=== PATIENT | male | born 1960 | race Caucasian/White ===

== ENCOUNTER 2018-02-14 15:17 | Outpatient (CLI) | payer MEDICARE, SELFPAY ==
[2018-02-14 16:17] LABS: ALT 45 U/L (12-78); AST 26 U/L (15-37); Albumin 3.9 g/dL (3.4-5.0); Alkaline Phosphatase 98 U/L (46-116); Anion Gap 10.3 mmol/L (3-11); BUN 17 mg/dL (7-18); Bilirubin, Total 0.2 mg/dL (0.2-1.0); CO2 26.7 mmol/L (21.0-32.0); Calcium 9.3 mg/dL (8.5-10.1); Chloride 103 mmol/L (98-107); Glucose 115 mg/dL (70-100); Magnesium 1.9 mg/dL (1.8-2.4); Potassium 3.9 mmol/L (3.5-5.1); Sodium 140 mmol/L (136-145); TSH (W/Ref FT4) 1.35 uIU/mL (0.358-3.74); Total Protein 7.3 g/dL (6.4-8.2)
[2018-02-14 16:22] LABS: Troponin I < 0.02 ng/mL (0.00-0.06)
== END 2018-02-14 15:37 ==
PROVIDERS: PCP Internal Medicine; Visit Provider Nurse Practitioner Family
DX: R00.2 Palpitations (principal)
CPT/HCPCS: 36415; 80053; 83735; 84443; 84484

== ENCOUNTER 2018-08-22 02:52 | Outpatient (CLI) | payer MEDICARE, SELFPAY ==
--- NOTE | 2018-08-22 | PFT_ITS ---
PULMONARY FUNCTION TEST REPORT Patient - Poncho Mcwilliams 60 DATE OF SERVICE August 22, 2018 REQUESTING PROVIDER Lucas Kirk M.D. INTERPRETATION OF STUDY Spirometry shows mild obstructive airways disease with no significant bronchodilator response. LUNG VOLUMES - Lung volumes show no evidence of restriction. DIFFUSION CAPACITY- Mildly reduced even when corrected to alveolar volume. AIRWAY RESISTANCE Normal. IMPRESSION Mild obstructive airways disease with no significant bronchodilator response. This is associated with mild diffusion defect. Clinical correlation recommended. When this study was compared to previous one from 04/23/15, the patient has a total of 70 cc decline in FVC and 190 cc improvement in FEV1. Clinical correlation recommended. Bhavani Lopez M.D. Monica DD 08/23/2018 DT - 08/23/2018
--- NOTE | 2018-08-22 | PFT_ITS ---
PULMONARY FUNCTION TEST REPORT Patient - Poncho Mcwilliams 60 DATE OF SERVICE August 22, 2018 REQUESTING PROVIDER Lucas Kirk M.D. INTERPRETATION OF STUDY Spirometry shows mild obstructive airways disease with no significant bronchodilator response. LUNG VOLUMES - Lung volumes show no evidence of restriction. DIFFUSION CAPACITY- Mildly reduced even when corrected to alveolar volume. AIRWAY RESISTANCE - Normal. IMPRESSION Mild obstructive airways disease with no significant bronchodilator response. This is associated with mild diffusion defect. Clinical correlation recommended. When this study was compared to previous one from 04/22/15, the patient has an overall 90 cc decline in FVC. FEV1 has improved by 190 cc. Clinical correlation recommended. Bhavani Lopez M.D. THALIA/ra Cook 08/30/2018
[2018-08-22] MEDS: Albuterol HFA 18 GM 200 PUFF INH IH (16:52)
[2018-08-22] MEDS: Inhaler, Assist Device 1 EACH MC (16:52)
== END 2018-08-22 03:12 ==
PROVIDERS: PCP Internal Medicine; Visit Provider Internal Medicine
DX: J44.9 Chronic obstructive pulmonary disease, unspecified (principal); R06.09 Other forms of dyspnea; Z87.891 Personal history of nicotine dependence
CPT/HCPCS: 94060; 94150; 94726; 94729

== ENCOUNTER 2018-08-29 01:05 | Outpatient (CLI) | payer MEDICARE, SELFPAY ==
--- NOTE | 2018-08-29 13:00 | DI.CTLCSR_ITS ---
SYMPTOMS/DIAGNOSIS: H/O TOBACCO USE, Z87.[address] FOR LUNG CANCER SCREENING: Low dose screening protocol was used. Comparison was made with PE chest CT dated April,. Paraseptal emphysema is seen, greatest at the upper lobes, as well as posteriorly in the lower lobes. There is no evidence of pleural or pericardial effusion, infiltrates or adenopathy. No pulmonary nodules are identified. Degenerative changes are seen in the spine. No suspicious bony lesions are identified. The heart size is normal. Coronary artery calcifications are seen. There is no evidence of aortic aneurysm or significant aortic calcification. The visualized portions of the upper abdominal organs are unremarkable. IMPRESSION: No evidence of suspicious nodules. Paraseptal emphysema is present. Lung-RAD Category: 1- Negative Lung- RAD Management of Findings: Continue annual LDCT screening in 12 months
== END 2018-08-29 01:25 ==
PROVIDERS: PCP Internal Medicine; Visit Provider Internal Medicine
DX: Z12.2 Encounter for screening for malignant neoplasm of respiratory organs (principal); J43.8 Other emphysema; Z87.891 Personal history of nicotine dependence
CPT/HCPCS: G0297

== ENCOUNTER 2019-05-15 12:24 | Outpatient (REF) | payer BC, MEDICARE, SELFPAY ==
[2019-05-15 23:26] LABS: Anion Gap 11.7 mmol/L (3-11); BUN 15 mg/dL (7-18); CO2 25.3 mmol/L (21.0-32.0); CREATININE 1.04 mg/dL (0.70-1.30); Calcium 9.1 mg/dL (8.5-10.1); Calculated LDL 56 mg/dL (<100); Chloride 104 mmol/L (98-107); Cholesterol 107 mg/dL (<200); Glucose 88 mg/dL (74-106); HDL Cholesterol 32 mg/dL (40-60); Potassium 4.4 mmol/L (3.5-5.1); Sodium 141 mmol/L (136-145); TSH 1.96 uIU/mL (0.36-3.74); Triglyceride 95 mg/dL (<150); Vitamin B12 477 pg/mL (193-986)
[2019-05-17 16:07] LABS: Albumin 61.1 % (55.8-66.1); Total Protein 6.7 g/dL (6.3-8.2)
== END 2019-05-15 12:44 ==
LOC: NCHCN 12:24
PROVIDERS: PCP Internal Medicine; Visit Provider Internal Medicine
DX: I25.10 Atherosclerotic heart disease of native coronary artery without angina pectoris (principal); F32.9 Major depressive disorder, single episode, unspecified; E87.6 Hypokalemia; G60.9 Hereditary and idiopathic neuropathy, unspecified; J44.9 Chronic obstructive pulmonary disease, unspecified
CPT/HCPCS: 80048; 80061; 82607; 83036; 84165; 84443

== ENCOUNTER 2019-09-11 01:10 | Outpatient (CLI) | payer BC, SELFPAY ==
--- NOTE | 2019-09-11 12:35 | DI.CTLCSR_ITS ---
EXAM: CT CHEST LUNG CANCER SCREEN CLINICAL HISTORY: The patient reportedly has a History of Smoking 30 pack years and presently smokes or has quit the past 15 years. TECHNIQUE: Imaging Protocol: Axial computed tomography images with coronal and sagittal reformatted images were created and reviewed COMPARISON: CT CT CHEST LUNG CANCER SCREEN from 08/29/2018 FINDINGS: Lung Nodules: There is a 7 millimeter in diameter spiculated appearing nodule in the posterior right upper lobe. A 4 x 7 millimeter nodule is seen in the anterior right upper lobe. A 3 x 5 millimeter nodule is seen in the medial right upper lobe. A 9 x 6 millimeter nodule is noted in the left upper lobe. There is a peripheral nodule measuring 4 x 6 millimeters in the left upper lobe. A 4 millimet er nodule seen in the left lower lobe. Underlying emphysematous changes are again noted. Tracheobronchial tree: Patent where visualized. Mediastinum and Jaylyn: No dominant adenopathy or fluid collection. Pulmonary parenchyma: No consolidation or dominant measurable mass. No architectural distortion. Pleura: No effusion or pneumothorax. Heart: The heart is not dilated. Coronary artery calcifications are seen. Aorta: Thoracic aorta non-dilated. Upper abdomen: Unremarkable. Bones: Degenerative disc changes. Soft Tissues: Unremarkable. IMPRESSION: Multiple new bilateral pulmonary nodules. The findings could represent metastatic disease. Lung RADS Category 4B - Suspicious: Findings for which additional diagnostic testing and/or tissue sa mpling is recommended Lung-RADS 1.0 CATEGORIES: Category 0 - Prior chest CT exam(s) being located for comparison. Category 1 - Annual screening in 12 months. No nodules or definitely benign nodules. Category 2 - Annual screening in 12 months. Benign appearance. Nodules with low likelihood of becomin g active cancer. Category 3 - 6-month follow-up. Probably benign. Short-term follow-up suggested. Nodules with low lik elihood of becoming active cancer. Category 4A - 3-month follow-up and CT/PET if >8 mm in size. Suspicious finding. Findings which requi re additional testing. Category 4B - Findings which require additional testing and tissue sampling. Suspicious finding. C Added to Any of the Above - History of prior lung cancer. S Added to Any of the Above - Significant unexpected other finding. RADIATION DOSE DELIVERED: 81.36mGy.cm Total DLP DATA REPOSITORY: All CT scans at this facility are submitted to the National Radiology Data Registry (NRDR) Dose Index Registry (DIR) with the [employer] (ACR). RADIATION OPTIMIZATION: All CT scans at this facility use at least one of these dose optimization te chniques: automated exposure control; mA and/or kV adjustment per patient size (includes targeted exa ms where dose is matched to clinical indication); or iterative reconstruction.
== END 2019-09-11 01:30 ==
PROVIDERS: PCP Internal Medicine; Visit Provider Internal Medicine
DX: Z12.2 Encounter for screening for malignant neoplasm of respiratory organs (principal); F17.200 Nicotine dependence, unspecified, uncomplicated; R91.8 Other nonspecific abnormal finding of lung field; J43.8 Other emphysema
CPT/HCPCS: G0297

== ENCOUNTER 2019-10-02 00:09 | Outpatient (CLI) | payer BC, SELFPAY ==
--- NOTE | 2019-10-02 06:30 | DI.US_ITS ---
EXAM: US CAROTID CLINICAL HISTORY: blurry vision,CAD,H53.8,I25.10. TECHNIQUE: Ultrasound carotids performed using grayscale, color-flow, and spectral Doppler imaging. COMPARISON: CT CT CHEST LUNG CANCER SCREEN from 09/11/2019 FINDINGS: RIGHT CAROTID ARTERY: Plaque: Mild plaque in the common carotid bulb . Velocity elevation: None. LEFT CAROTID ARTERY: Plaque: Mild plaque in the common carotid bulb. Velocity elevation: None. VERTEBRAL ARTERIES: Antegrade flow. An 8 millimeter cyst is seen in the right lobe of the thyroid. Velocity measurements: R Bulb: 61.7cm/s PS / 17.4cm/s ED R CCA: 79.7cm/s PS / 18cm/s ED R ECA: 104.1cm/s PS / 14.8cm/s ED R ICA Prox: 77.1cm/s PS /19.3cm/s ED R ICA Mid: 83.6cm/s PS / 23.8cm/s ED R ICA Distal: 82.9cm/s PS /23.8cm/s ED R Vert: 46.3cm/s PS / 6.8cm/s ED R SVR: 1.05 R DVR: 1.32 L Bulb: 36.8cm/s PS /9.5cm/s ED L CCA: 92.5cm/s PS / 13.9cm/s ED L ECA: 84.7cm/s PS /12.1cm/s ED L ICA Prox:63.1cm/s PS / 18.9cm/s ED L ICA Mid: 83.1cm/sPS / 23.7cm/s ED L ICA Distal: 86.8cm/s PS / 28.4cm/s ED L Vert: 56.3cm/s PS / 15.2cm/s ED L SVR: 0.94 L DVR: 2.04 IMPRESSION: No evidence for hemodynamically significant carotid stenosis. Criteria for Carotid Stenosis: Normal: ICA PSV <125 cm/s no plaque or intimal thickening is visible. <50% stenosis: ICA PSV <125 cm/s and plaque or intimal thickening is visible. 50-69% stenosis: ICA PSV is 125-250 cm/s and plaque is visible. >70% stenosis to near occlusion: ICA PSV >250 cm/s with visible plaque and luminal narrowing. DATA REPOSITORY:
--- NOTE | 2019-10-02 07:36 | DI.US_ITS ---
APPROVED REPORT EXAM: Comprehensive 2D, Doppler, and color-flow Echocardiogram Patient Location: Out-Patient Clinical Material Handler: Leanna Vargas RDCS (AE) Indications: CAD, Blurry vision Other Information Study Quality: Adequate Conclusion Left Ventricle : The left ventricle is normal size. The left ventricular systolic function is normal. The left ventricular ejection fraction is within the normal range. There is normal left ventricular wall thickness. There is normal LV segmental wall motion. The left ventricular diastolic function is normal. LVEF is 50%. Right Ventricle : The right ventricle is normal size. The right ventricular systolic function is norm al. The RVSP is 19.1mmHg. Atria : The left atrium size is normal. The right atrium size is normal. Valves: There are no hemodynamically significant valvular lesions. Great Vessels : IVC is normal in size and collapses >50% with inspiration. Compared to echocardiogram from 04/22/2015: There is no significant change. Wall motion Left Ventricle The left ventricle is normal size. The left ventricular systolic function is normal. The left ventric ular ejection fraction is within the normal range. There is normal left ventricular wall thickness. T here is normal LV segmental wall motion. The left ventricular diastolic function is normal. There is no ventricular septal defect visualized. LVEF is 50%. Right Ventricle The right ventricle is normal size. The right ventricular systolic function is normal. The RVSP is 19 .1mmHg. Atria The left atrium size is normal. The right atrium size is normal. The interatrial septum is intact wit h no evidence for an atrial septal defect. Aortic Valve Aortic valve is trileaflet. There is no aortic valvular stenosis. Mild aortic regurgitation. Mitral Valve The mitral valve is normal in structure. No evidence of mitral valve stenosis. Trace to mild mitral r egurgitation. Tricuspid Valve The tricuspid valve is normal in structure. There is no tricuspid valve stenosis. Trace tricuspid reg urgitation. Pulmonic Valve Pulmonic valve is not well visualized. There is no pulmonic valvular stenosis. There is no pulmonic v alvular regurgitation. Great Vessels The aortic root is normal in size. Ascending aorta is not well visualized. Aortic arch is normal in c aliber. IVC is normal in size and collapses >50% with inspiration. Pericardium There is no pericardial effusion. 2D Dimensions IVSD d PLAX 0.98 cm M: 0.6-1.2 LV Vol A2C d MOD 108.7 mL LVPW d PLAX 0.96 cm M: 0.6 - 1.2 LV Vol A4C d MOD 128.6 mL LVID d PLAX 5.16 cm M: 4.2 - 5.8 LA vol/ BSA A2C s A-L 21.2 mL/m2 LVDs 3.90 cm M: 2.5 - 4.0 LA vol/ BSA A4C s A-L 18.0 mL/m2 Ao Root d 3.55 cm M: 3.1 - 3.7 LA Vol/ BSA Biplane s A-L 20.7 mL/m2 RA Area A4C 12.03 cm2 LA Area A4C s MOD 14.10 cm2 RA Vol/ BSA A4C s A-L 15.0 mL/m2 LA Area A2C s MOD 16.26 cm2 LV EF Teichholz 47.7 % LV EF A4C MOD 49.4 % LVEF (De Souza's) 48.68 % M: 52 - 72 LV EF A2C MOD 50.7 % LV Volume 88.63 mL M: 62 - 150 LV EF Biplane MOD 48.7 % LV Volume Index 43.66 mL/m2 M: 34 - 74 SV 57.88 mL LV Vol Biplane MOD 118.9 mL SV Index 28.41 mL/m2 FS 24.10 % M-Mode TAPSE 2.77 cm (M/F) >1.7 LV Diastology MV E' medial 0.142 (>0.07 m/s) E/A Ratio 1.0 LV E/e MED 4.75 (<14) MV E Vmax 0.67 (0.4-1.3 m/s) MV E' lateral 0.192 (>0.1 m/s) MV A Vmax 0.70 (0.4-1.3 m/s) LV E/e LAT 3.50 (<14) MV E/A Ratio 0.93 MV E/E' medial 4.76 MV E/E' lateral 3.51 Aortic Valve LVOT Area 4.10 cm2 AoV Area Vmax 3.10 cm2 LVOT Vmax 0.94 m/s AoV Area/ BSA (Vmax) 1.52 cm2/m2 LVOT Mean Joe. 0.57 m/s PUNEET Mean Joe. 2.87 cm2 LVOT Peak Grad 3.5 mmHg PUNEET Mean Joe. Index 1.41 cm2/m2 LVOT Mean Grad 1.6 mmHg AR DT 2312 msec LVOT VTI 0.208 m AR PHT 670 msec LVOT Diam s 2.25 cm AoV Vmax 1.24 m/s Velocity Ratio 0.75 AoV Mean Joe. 0.82 m/s AoV Peak Grad 6.1 mmHg LVOT SV 85.06 mL AoV Mean Grad 3.1 mmHg AoV VTI 0.285 m AoV Area VTI 2.98 cm2 AoV Area/ BSA (VTI) 1.46 cm/m2 Mitral Valve MV DT 226 (160-240 msec) MV PHT 65 msec MV Area PHT 3.36 cm2 Pulmonary Valve PV Vmax 0.83 (0.5-1.5 m/s) RVOT Peak Gr. 1.62 mmHg PV Peak Grad 2.8 mmHg RVOT Mean Gr. 0.70 mmHg PV Mean Grad 1.6 mmHg RVOT VTI 0.122 m PV VTI 0.178 m RVOT Vmax 0.64 m/s Tricuspid Valve TR Peak Grad 16.0 mmHg TR Vmax 2.00 m/s RA Pressure 3.00 mmHg RVSP (TR) 19.1 mmHg
== END 2019-10-02 00:29 ==
PROVIDERS: PCP Internal Medicine; Visit Provider Internal Medicine Cardiovascular Disease
DX: I25.10 Atherosclerotic heart disease of native coronary artery without angina pectoris (principal); H53.8 Other visual disturbances; E04.1 Nontoxic single thyroid nodule
CPT/HCPCS: 93306; 93880

== ENCOUNTER 2019-11-10 07:32 | Outpatient (CLI) | payer BC, SELFPAY ==
[2019-11-13 23:45] LABS: COVID-19 RT-PCR UVMMC Result Negative (Negative)
== END 2019-11-10 07:52 ==
PROVIDERS: PCP Internal Medicine; Visit Provider Surgery
DX: Z01.818 Encounter for other preprocedural examination (principal)
CPT/HCPCS: U0003

== ENCOUNTER 2019-11-14 07:51 | Day surgery (SDC) | payer MEDICARE, BC, SELFPAY ==
[2019-11-14 07:58] VITALS: BP 111/63; PULSE 75; RESP 16; TEMP 36.2; O2SAT 98
[2019-11-14] MEDS: Lactated Ringers 1,000 ML 80 ML IV (08:30)
--- NOTE | 2019-11-14 09:16 | W.PM.DSUDISC ---
Discharge Plan Disposition Patient Disposition: HOME Condition: Good Discharge Details Reason For Visit: EGD, Colonoscopy Attending Provider: Radha Bennett Primary Care Provider: Lucas Kirk Home Meds and New Rx's Prescriptions: Continued Incruse Ellipta 62.5 mcg/actuation blister with device 1 inh IH DAILY RF: 0 metoprolol succinate 50 mg tablet extended release 24 hr 50 mg PO DAILY RF: 0 aspirin [Aspirin Low-Strength] 81 MG tablet,chewable 81 mg PO DAILY RF: 0 atorvastatin 40 MG tablet 40 mg PO DAILY RF: 0 carvedilol 6.25 MG tablet 6.25 mg PO BID RF: 0 lisinopril 5 MG tablet 5 mg PO DAILY RF: 0 nitroglycerin [Nitrostat] 0.4 MG tablet, sublingual 0.4 mg Sublingual Q5 MIN PRN X3 PRNQty: 25 RF: 0 Discharge Instructions Additional Instructions: Findings: Your EGD was normal. Routine biopsies were taken from the stomach. Two small polyps were removed from the colon. My office will contact you with biopsy results. Follow up: If the colon polyps are adenomatous, you will need a colonoscopy in 5 years. Please call if you develop: fevers >101.5 Nausea or Vomiting Abdominal pain that is not transient Bleeding DAY SURGERY UNIT POST EGD/COLONOSCOPY INSTRUCTIONS 1. Because there will be medication in your system for the next 24 hours, you may feel a little sleepy. Your coordination will be affected. Therefore: a. Do not drive or operate dangerous equipment for 24 hours. b. Do not drink alcohol beverages for 24 hours (not even beer). c. Plan to go home and rest for the day. 2. Generally there are no restrictions on your activity after a day or so has gone by, but you may feel a bit fatigued for a few days. 3 After you arrive home you may have a light meal and return to a normal diet as you can tolerate it without feeling sick to your stomach. 4. After surgery, you may feel pain or discomfort. This should be only transient, but if it persists please contact your doctor. 5. If there are any questions regarding the findings of your procedure, please feel free to contact your doctor. 6. If you are unable to contact your doctor with a problem, contact the hospital at [phone]. 7. Continue all your regular medications unless directed otherwise. I understand the above instructions and have no questions. Signature of Patient or Responsible Adult Escort Date/Time Name of Responsible Adult Escort Signature of Nurse Date/Time Activity:: Activity as Tolerated Diet:: As Tolerated Discharge Orders Discharge Orders: Discharge Order (Routine); Ordered 11/14/19 Ordered By: Merna Bates DS: Diagnosis Discharge Diagnosis (1) Colon polyps: Status: Acute
--- NOTE | 2019-11-14 09:17 | W.PM.OP ---
Date of service: 11/14/19 Time of Service: 10:45 Operative Note Operative Note DATE OF PROCEDURE: 11/14/19 PRE-OP DIAGNOSIS: Abnormal PET scan POST-OP DIAGNOSIS: other (Normal EGD, colon polyps) PROCEDURE: EGD with biopsy Colonoscopy with snare polypectomy SURGEON: Merna Bates ANESTHESIA: MAC Patient was transported to: same day Indications: This patient had a chest CT which showed pulmonary nodules. Follow up PET scan showed increased uptake in the stomach and right colon, direct visualization needed. No prior EGD. Colonoscopy in 2014 showed a rectal hyperplastic polyp. Procedure Description: The patient was placed in the left lateral position and propofol titrated to sedation. The endoscope was advanced into the esophagus under direct visualization. The scope was passed through the stomach and into the duodenum. There was no duodenitis or ulceration noted. The stomach itself was normal including on retroflexed view of the fundus and lesser curvature. Routine biopsies were taken from the gastric antrum. The GE junction was inspected and showed no significant stricture, inflammation, masses or Barretts. The scope was slowly withdrawn with no other esophageal lesions found. Digital rectal examination revealed no abnormalities. The scope was advanced to the cecum without difficulty. The ileocecal valve and appendiceal orifice were clearly identified. The prep was good. The scope was slowly withdrawn over the course of greater than 6 minutes with no abnormalities seen in the ascending, transverse, descending colon. At 20 cm in the distal sigmoid, a less than 1cm polyp was removed with the snare and sent to pathology. A tiny rectal polyp was removed with the snare. The remainder of the rectum was normal including on retroflexed view. The patient tolerated the procedure well and was stable to recovery. If the polyps are adenomatous, he will need a colonoscopy in 5 years.
--- NOTE | 2019-11-14 10:00 | STOM_PTH ---
PATIENT: Poncho Mcwilliams LOC: [facility] U#:[id number] AGE/SX: 59/M ROOM: RE11/14/[address]: Radha Bennett : 1960 BED: DIS: 11/14/2019 SPEC #: [id number] RECD: 11/14/19 12:43 STATUS: [facility] REQ #: [id number] DIRK: 11/14/19 10:[address]: Radha Bennett DEPT: Surgical Specimen RECD BY: Kaylie Gimenez ENTERED: 11/14/19 12:47 SP TYPE: STOMACH OTHR DR: Lucas Kirk Tissues: 1 - STOMACH BIOPSY 2 - BIOPSY BOWEL 3 - BIOPSY BOWEL Procedures: GROSS AND MICRO LEVEL 4 Comments: [id number]
[2019-11-14 11:14] VITALS: BP 101/51; PULSE 56; RESP 17; TEMP 36.2; O2SAT 99
== END 2019-11-14 11:34 | disposition home or self-care (01) ==
PROVIDERS: Surgery; PCP Internal Medicine; Visit Provider Surgery
DX: R93.3 Abnormal findings on diagnostic imaging of other parts of digestive tract (principal); Z80.7 Family history of other malignant neoplasms of lymphoid, hematopoietic and related tissues; R91.1 Solitary pulmonary nodule; K63.5 Polyp of colon
CPT/HCPCS: 45385; 43239; 88305; J2001; J2704

== ENCOUNTER 2019-12-03 01:05 | Outpatient (CLI) | payer BC, SELFPAY ==
--- NOTE | 2019-12-03 08:45 | DI.CT_ITS ---
EXAM: CT CHEST WO CLINICAL HISTORY: F/U ABNL FINDINGS,R93.89,F/U PULMONARY NODULES TECHNIQUE: Imaging Protocol: Axial computed tomography images with coronal and sagittal reformatted images were created and reviewed CONTRAST MATERIAL: Intravenous: Omnipaque 350 Contrast volume:structured data in ml. COMPARISON: CT CT CHEST LUNG CANCER SCREEN from 09/11/2019 FINDINGS: Tracheobronchial tree: Patent where visualized. Mediastinum and Jaylyn: No dominant adenopathy or fluid collection. Pulmonary parenchyma: There has been interval decrease in size of the left upper lobe nodule now ken uring 4 millimeters in diameter. The nodule at the right upper lobe medially now measures 3 millimet ers. The additional nodules previously seen are no longer visible. Underlying emphysematous changes are present. Pleura: No effusion or pneumothorax. Heart: The heart is not dilated. coronary artery calcifications are seen. Aorta: Thoracic aorta non-dilated. Upper abdomen: Unremarkable. Lymph nodes: Within normal limits. Bones: Degenerative disc changes.. Soft tissues: Unremarkable. IMPRESSION: Interval decrease in size of pulmonary nodules. Some of the previously noted nodules are no longer v isible. No new abnormalities are seen. RADIATION DOSE DELIVERED: 402.88mGy.cm Total DLP DATA REPOSITORY: All CT scans at this facility are submitted to the National Radiology Data Registry (NRDR) Dose Index Registry (DIR) with the [employer] (ACR). RADIATION OPTIMIZATION: All CT scans at this facility use at least one of these dose optimization te chniques: automated exposure control; mA and/or kV adjustment per patient size (includes targeted exa ms where dose is matched to clinical indication); or iterative reconstruction.
== END 2019-12-03 01:25 ==
PROVIDERS: PCP Internal Medicine; Visit Provider Internal Medicine
DX: R91.8 Other nonspecific abnormal finding of lung field (principal)
CPT/HCPCS: 71250

== ENCOUNTER 2020-06-10 17:20 | Outpatient (REF) | payer BC, SELFPAY ==
[2020-06-10 19:49] LABS: Anion Gap 6.5 mmol/L (3-11); BUN 20 mg/dL (7-18); CO2 27.5 mmol/L (21.0-32.0); CREATININE 1.1 mg/dL (0.70-1.30); Calcium 9.1 mg/dL (8.5-10.1); Chloride 106 mmol/L (98-107); Glucose 92 mg/dL (74-106); Potassium 4.2 mmol/L (3.5-5.1); Sodium 140 mmol/L (136-145)
[2020-06-10 19:59] LABS: Hemoglobin A1C 6.3 % (<5.7)
== END 2020-06-10 17:21 | disposition home or self-care (01) ==
LOC: NCHCN 17:20
PROVIDERS: PCP Internal Medicine; Visit Provider Internal Medicine
DX: R73.03 Prediabetes (principal); I25.10 Atherosclerotic heart disease of native coronary artery without angina pectoris
CPT/HCPCS: 80048; 83036

== ENCOUNTER 2021-06-23 14:56 | Outpatient (REF) | payer BC, SELFPAY ==
[2021-06-23 15:28] LABS: HCT 44.1 % (40.0-50.0); HGB 14.3 g/dL (13.5-17.5); MCH 31.5 pg (27.0-33.0); MCHC 32.4 % (32.0-36.0); MCV 97.1 fL (80-95); MPV 10.9 fL (8.0-11.0); Platelet Count 206 10^3/uL (130-400); RBC 4.54 10^6/uL (4.36-5.78); RDW 13.2 % (11.8-14.1); RDW-SD 47.8 fL; WBC 5.91 10^3/uL (4.4-10.8)
[2021-06-23 15:34] LABS: Anion Gap 9.1 mmol/L (3-11); BUN 14 mg/dL (7-18); CO2 27.9 mmol/L (21.0-32.0); CREATININE 1.1 mg/dL (0.70-1.30); Calcium 9.2 mg/dL (8.5-10.1); Chloride 102 mmol/L (98-107); Glucose 123 mg/dL (74-106); Potassium 4.6 mmol/L (3.5-5.1); Sodium 139 mmol/L (136-145)
[2021-06-23 16:08] LABS: Hemoglobin A1C 6.1 % (<5.7)
== END 2021-06-23 14:57 | disposition home or self-care (01) ==
LOC: NCHCN 14:56
PROVIDERS: PCP Internal Medicine; Visit Provider Family Medicine
DX: Z00.00 Encounter for general adult medical examination without abnormal findings (principal); R73.03 Prediabetes; J44.9 Chronic obstructive pulmonary disease, unspecified
CPT/HCPCS: 80048; 85027; 83036

== ENCOUNTER 2022-05-14 00:32 | Outpatient (CLI) | payer BC, SELFPAY ==
--- NOTE | 2022-05-14 | DI.RAD_ITS ---
Exam(s) XR HAND LT COMPLETE EXAM: XR HAND LT COMPLETE CLINICAL HISTORY: OA HANDS,M19.90. TECHNIQUE: 2D digital imaging was performed of the left hand. Three views were obtained. AP, later al and oblique views were obtained. COMPARISON: No exams were available for comparison FINDINGS: BONES: No acute fracture is present. No bony destructive lesion is seen. JOINTS: No dislocation present. There are moderate hypertrophic changes seen at the 1st CMC joint wit h joint space narrowing. SOFT TISSUE: Normal. 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 DATA REPOSITORY: RADIATION DOSE DELIVERED:
== END 2022-05-14 00:52 ==
LOC: DI 00:33
PROVIDERS: PCP Internal Medicine; Visit Provider Family Medicine
DX: M79.642 Pain in left hand (principal); M18.12 Unilateral primary osteoarthritis of first carpometacarpal joint, left hand; M19.041 Primary osteoarthritis, right hand; M19.042 Primary osteoarthritis, left hand
CPT/HCPCS: 73130

== ENCOUNTER 2022-06-21 17:15 | Outpatient (REF) | payer BC, SELFPAY ==
[2022-06-21 21:26] LABS: Abs Immature Grans 0.01 10^3/uL (0.0-0.06); Absolute Basophil Count 0.03 10^3/uL (0.0-0.2); Absolute Eosinophil Count 0.11 10^3/uL (0.0-0.7); Absolute Lymphocyte Count 1.92 10^3/uL (1.2-3.4); Absolute Monocyte Count 0.77 10^3/uL (0.1-0.8); Absolute Neutrophil Count 4.36 10^3/uL (1.2-6.7); Basophils % 0.4; Eosinophils % 1.5; HCT 39.9 % (40.0-50.0); HGB 13.7 g/dL (13.5-17.5); Immature Grans % 0.1; Lymphocytes % 26.7; MCH 32.5 pg (27.0-33.0); MCHC 34.3 % (32.0-36.0); MCV 95 fL (80-95); MPV 10.7 fL (8.0-11.0); Monocytes % 10.7; Neutrophils % 60.6; Platelet Count 192 10^3/uL (130-400); RBC 4.21 10^6/uL (4.36-5.78); RDW-SD 45.2 fL
[2022-06-21 21:45] LABS: Hemoglobin A1C 5.9 % (<5.7)
[2022-06-21 21:51] LABS: ALT 32 U/L (16-63); AST 23 U/L (15-37); Alkaline Phosphatase 103 U/L (46-116); Anion Gap 9.4 mmol/L (3-11); BUN 21 mg/dL (7-18); Bilirubin, Total 0.3 mg/dL (0.2-1.0); CO2 25.6 mmol/L (21.0-32.0); CREATININE 1.2 mg/dL (0.70-1.30); Calcium 9.4 mg/dL (8.5-10.1); Chloride 105 mmol/L (98-107); Estimated GFR 68.38 (mL/min/1.73m2); Folate 10.1 ng/mL (8.6-20.0); Glucose 95 mg/dL (74-106); Potassium 4.1 mmol/L (3.5-5.1); Sodium 140 mmol/L (136-145); TSH (W/Ref FT4) 2.09 uIU/mL (0.36-3.74); Total Protein 7.1 g/dL (6.4-8.2); Vitamin B12 461 pg/mL (193-986)
== END 2022-06-21 17:16 | disposition home or self-care (01) ==
LOC: NCHCN 17:15
PROVIDERS: PCP Internal Medicine; Visit Provider Family Medicine
DX: Z00.00 Encounter for general adult medical examination without abnormal findings (principal); R73.03 Prediabetes; F17.210 Nicotine dependence, cigarettes, uncomplicated; M19.90 Unspecified osteoarthritis, unspecified site; G60.9 Hereditary and idiopathic neuropathy, unspecified
CPT/HCPCS: 80053; 82607; 82746; 83036; 84165; 84443; 85025

== ENCOUNTER 2022-11-29 09:30 | Outpatient (CLI) | payer BC, SELFPAY ==
--- NOTE | 2022-11-29 09:30 | RT.EKG_ITS ---
APPROVED REPORT Exam: Resting ECG Reason for Exam: CAD Patient Location: O HR:57 bpm ECG Measurements Heart Rate 57 AXIS AZ 179 P 80 QRSd 116 QRS 81 QT 437 T -18 QTc 426 Conclusion Sinus rhythm...normal P axis, V-rate 50- 99 Ventricular premature complex...V complex w/ short R-R interval Nonspecific intraventricular conduction delay...QRSd >115mS, not LBBB/RBBB Inferior infarct, age indeterminate...Q>35mS, T neg, II III aVF
== END 2022-11-29 09:31 | disposition home or self-care (01) ==
LOC: DI.CARD 09:32
PROVIDERS: PCP Family Medicine; Visit Provider Internal Medicine Cardiovascular Disease
DX: I25.10 Atherosclerotic heart disease of native coronary artery without angina pectoris (principal)
CPT/HCPCS: 93010

== ENCOUNTER 2023-07-25 13:25 | Outpatient (REF) | payer BC, SELFPAY ==
[2023-07-25 21:34] LABS: HCT 44.2 % (40.0-50.0); HGB 14.9 g/dL (13.5-17.5); MCH 32.7 pg (27.0-33.0); MCHC 33.7 % (32.0-36.0); MCV 97 fL (80-95); MPV 10.8 fL (8.0-11.0); Platelet Count 199 10^3/uL (130-400); RBC 4.56 10^6/uL (4.36-5.78); RDW 12.9 % (11.8-14.1); RDW-SD 46.5 fL; WBC 6.98 10^3/uL (4.4-10.8)
[2023-07-25 21:48] LABS: ALT 44 U/L (16-63); AST 27 U/L (15-37); Alkaline Phosphatase 108 U/L (46-116); Anion Gap 10.8 mmol/L (3-11); BUN 19 mg/dL (7-18); Bilirubin, Total 0.5 mg/dL (0.2-1.0); CO2 28.2 mmol/L (21.0-32.0); CREATININE 1.2 mg/dL (0.70-1.30); Calcium 9.5 mg/dL (8.5-10.1); Chloride 104 mmol/L (98-107); Estimated GFR 67.95 (mL/min/1.73m2); Glucose 112 mg/dL (74-106); Potassium 4.8 mmol/L (3.5-5.1); Sodium 143 mmol/L (136-145); Total Protein 6.9 g/dL (6.4-8.2)
== END 2023-07-25 13:26 | disposition home or self-care (01) ==
LOC: NCHCN 13:25
PROVIDERS: PCP Family Medicine; Visit Provider Family Medicine
DX: Z00.00 Encounter for general adult medical examination without abnormal findings (principal); I10 Essential (primary) hypertension
CPT/HCPCS: 80053; 85027

== ENCOUNTER 2024-08-02 14:02 | Outpatient (REF) | payer BC, SELFPAY ==
[2024-08-02 14:48] LABS: HCT 42.9 % (40.0-50.0); HGB 14.5 g/dL (13.5-17.5); MCH 32.7 pg (27.0-33.0); MCHC 33.8 % (32.0-36.0); MCV 97 fL (80-95); MPV 11.3 fL (8.0-11.0); Platelet Count 214 10^3/uL (130-400); RBC 4.44 10^6/uL (4.36-5.78); RDW 13.2 % (11.8-14.1); RDW-SD 47.5 fL; WBC 6.87 10^3/uL (4.4-10.8)
[2024-08-02 15:12] LABS: ALT 32 U/L (16-63); AST 26 U/L (15-37); Albumin 3.9 g/dL (3.4-5.0); Alkaline Phosphatase 111 U/L (46-116); Anion Gap 8.3 mmol/L (3-11); BUN 18 mg/dL (7-18); Bilirubin, Total 0.6 mg/dL (0.2-1.0); CO2 28.7 mmol/L (21.0-32.0); CREATININE 1.2 mg/dL (0.70-1.30); Calcium 9.8 mg/dL (8.5-10.1); Chloride 106 mmol/L (98-107); Estimated GFR 67.53 (mL/min/1.73m2); Glucose 95 mg/dL (74-106); LDL CHOLESTEROL 40 mg/dL (<100); Potassium 4.8 mmol/L (3.5-5.1); Sodium 143 mmol/L (136-145); Total Protein 6.7 g/dL (6.4-8.2)
== END 2024-08-02 14:03 | disposition home or self-care (01) ==
LOC: NCHCN 14:02
PROVIDERS: PCP Family Medicine; Visit Provider Family Medicine
DX: Z00.00 Encounter for general adult medical examination without abnormal findings (principal)
CPT/HCPCS: 80053; 83721; 85027

== ENCOUNTER 2025-01-25 08:51 | Outpatient (CLI) | payer BC, SELFPAY ==
--- NOTE | 2025-01-25 08:45 | RT.EKG_ITS ---
APPROVED REPORT Exam: Resting ECG Reason for Exam: follow up needed Patient Location: O HR:54 bpm ECG Measurements Heart Rate 54 AXIS OH 184 P 84 QRSd 118 QRS 87 QT 436 T -5 QTc 414 Conclusion Sinus rhythm...normal P axis, V-rate 50- 99 Nonspecific intraventricular conduction delay...QRSd >115mS, not LBBB/RBBB Inferior infarct, old...Q >35mS, II III aVF
== END 2025-01-25 08:52 | disposition home or self-care (01) ==
LOC: DI.CARD 08:52
PROVIDERS: PCP Family Medicine; Visit Provider Internal Medicine Cardiovascular Disease
DX: I25.10 Atherosclerotic heart disease of native coronary artery without angina pectoris (principal)
CPT/HCPCS: 93010